=== PATIENT | male | born 1950 | race Caucasian/White ===

== ENCOUNTER 2018-02-02 14:59 | Observation (INO) | payer MEDICARE ==
[2018-02-02] MEDS ORDERED: NS 0.9% 1000 ML* 1,000 ML IV ONE ×2 (16:08→19:20)
[2018-02-02] MEDS ORDERED: Acetaminophen TAB* 325 MG PO ONE (17:19)
--- NOTE | 2018-02-02 17:26 | RAD ---
Indication: Shortness of breath. Comparison is made with previous exam dated January 09, 2014. 2 views the chest including dual energy PA views demonstrates hyperinflated lung figueroa. No alveolar consolidation is noted. No mediastinal shift is noted. There is flattening the diaphragms noted. IMPRESSION: Hyperinflated lung figueroa with chronic granulomas in the right lung base. No definite pneumonia is noted.
[2018-02-02] MEDS ORDERED: Levofloxacin 500 MG IVPREMIX(* 500 MG/100 ML BAG IVPB ONE (18:03)
[2018-02-02 18:52] LABS: Hematocrit 45 % (42-52); Hemoglobin 15.2 g/dl (14.0-18.0); Mean Corpuscular HGB Conc 34 g/dl (31-36); Mean Corpuscular Hemoglobin 31 pg (27-31); Mean Corpuscular Volume 91 fL (80-94); Mean Platelet Volume 11 um3 (7.4-10.4); Platelet Count 251 10^3/ul (150-450); Red Blood Count 4.96 10^6/ul (4.0-5.4); Red Cell Distribution Width 15 % (10.5-15); White Blood Count 44.7 10^3/ul (3.5-10.8)
[2018-02-02 19:07] LABS: EGFR Non-African American 80.3 (>60)
[2018-02-02 19:17] LABS: Monocytes % 3 % (0-7)
[2018-02-02] MEDS ORDERED: Vancomycin(*) 1,000 MG in NS 0.9% 250 ML* 250 ML IVPB ONE (19:20)
[2018-02-02 19:34] LABS: Hematocrit 42 % (42-52); Hemoglobin 14.4 g/dl (14.0-18.0); Mean Corpuscular HGB Conc 34 g/dl (31-36); Mean Corpuscular Hemoglobin 31 pg (27-31); Mean Corpuscular Volume 91 fL (80-94); Mean Platelet Volume 10 um3 (7.4-10.4); Platelet Count 222 10^3/ul (150-450); Red Blood Count 4.67 10^6/ul (4.0-5.4); Red Cell Distribution Width 15 % (10.5-15); White Blood Count 42.1 10^3/ul (3.5-10.8)
[2018-02-02 19:44] LABS: INR 1.15 (0.77-1.02)
[2018-02-02 19:53] LABS: EGFR Non-African American 78.4 (>60)
[2018-02-02] MEDS ORDERED: Enoxaparin(*) 80 MG/0.8 ML SYR SUBCUT ONE (20:08)
[2018-02-02] MEDS ORDERED: Aspirin Low Dose CHEW TAB* 81 MG PO ONE (20:08)
[2018-02-02] MEDS ORDERED: Clopidogrel TAB* 300 MG PO ONE (20:08)
[2018-02-02] MEDS ORDERED: Iohexol 350* (CONTRAST) 500 ML MDV IV ONE (21:44)
--- NOTE | 2018-02-02 22:06 | RAD ---
Indication: Pulmonary embolus. Contrast: Administered 67.2 ml of OMNIPAQUE 350 mg/ml CTA of the chest was performed after IV contrast administration. Coronal and sagittal reconstructed images were obtained. The pulmonary arterial tree is well opacified. There is no evidence of filling defects to suggest pulmonary embolus. Aorta demonstrates no evidence of aortic dissection. No aneurysmal dilatation is noted. There is moderate degree of mediastinal adenopathy. Pretracheal lymph nodes measure up to 9 mm. Right hilar lymph nodes are noted measuring up to 2.9 cm. Left hilar lymph nodes are noted measuring up to 13 mm. The heart demonstrates no pericardial effusion. The trachea and major bronchi appear patent. Emphysematous changes are noted. Atelectasis is noted in the left lower lobe posteriorly. There is a calcified granuloma in the right lung base measuring 4 mm and 2 mm. There is right middle lobe atelectasis noted. The patient status post splenectomy. Left renal cysts are noted. The liver is otherwise unremarkable. IMPRESSION: No pulmonary embolus is noted. Emphysematous changes of the lung figueroa are noted. Calcified granuloma in the right lung base. Atelectasis in the right middle lobe and scarring in the left base. Mild to moderate mediastinal and hilar adenopathy is noted as described above.
--- NOTE | 2018-02-03 00:07 | ED ---
Chela Madison Abhishek, scribed for Billy Harper MD on 02/02/18 at 2349 . Progress - Progress Note Progress Note: The pt was signed out by Dr. Zhang awaiting disposition and blood work. - Consult/PCP Time Called: 23:30 Consult/PCP: Dr. Selene Bright Course/Dx - Course Course Of Treatment: The pt's dx will be fever, colon cancer, and elevated troponin. The pt will be admitted to the [facility]. We discussed pt care with Dr. Bright and she accepts pt care. - Diagnoses Provider Diagnoses: Fever, Colon cancer, Elevated troponin - Provider Notifications Instructed by Provider To: Admit As Observation The documentation as recorded by the Chela eric Abhishek accurately reflects the service I personally performed and the decisions made by , Billy Harper MD.
[2018-02-03] MEDS ORDERED: HYDROcodone/ACETAMIN 5-325 MG* 1 TAB PO PRN (00:54)
[2018-02-03] MEDS ORDERED: LORazepam TAB(*) 0.5 MG PO PRN (00:54)
[2018-02-03] MEDS ORDERED: Prochlorperazine TAB* 10 MG PO PRN (00:54)
[2018-02-03] MEDS ORDERED: Ondansetron TAB* 4 MG PO PRN (00:54)
[2018-02-03] MEDS ORDERED: Loperamide CAP* 2 MG PO PRN (01:04)
[2018-02-03 02:15] LABS: Urine Appearance Clear; Urine Blood 1+ (Negative); Urine Color Yellow; Urine Ketones Negative (Negative); Urine Protein Negative (Negative); Urine Specific Gravity 1.039 (1.010-1.030); Urine Urobilinogen Negative (Negative)
--- NOTE | 2018-02-03 07:39 | HP ---
CC: Dr. Wyman; Dr. Andrea Au * HISTORY AND PHYSICAL: DATE OF ADMISSION: 02/03/18 PRIMARY CARE PROVIDER: Dr. Wyman. ONCOLOGIST: Dr. Andrea Au CHIEF COMPLAINT: Fever. HISTORY OF PRESENT ILLNESS: Mr. Barron is a 67-year-old male who was diagnosed with colon cancer in October 2017 and is now status post his third round of chemotherapy last week who presents to the emergency room with complaints of fever. The patient states that yesterday morning he felt like he was getting dehydrated and therefore went to the store and bought some Gatorade. He began to drink this and by yesterday afternoon he developed a fever. He contacted his oncologist's office and was told to present to the emergency room for evaluation. The patient presented to the ER with complaints of fever and was found to have a temperature of initially 100.4, though it did go up to 101.2. The patient's oncologist was contacted and it was recommended that he be sent out on Levaquin 500 mg daily to complete a 10-day course of therapy. The patient, however, had lab work performed including a troponin that was noted to be elevated at 0.76. This got rerun, and the troponin was, in fact, only 0.14. Followup troponin 3 hours later is 0.1. The patient denies any chest pain or palpitations. He does state that yesterday he began to have shortness of breath with exertion. He does have a slight cough, though nothing significant. He denies any dysuria. He denies any skin break-down. He denies any sputum production. He does state that he began to have diarrhea after presenting to the emergency room. He has gone 3 times. It has been pure liquid stool. He has developed diarrhea like this following each course of chemotherapy so far. The patient had been using Imodium as an outpatient with good response last week. PAST MEDICAL HISTORY: 1. Colon cancer. 2. BPH. 3. Chronic back pain. PAST SURGICAL HISTORY: 1. L4/L5/S1 laminectomy. 2. Splenectomy. 3. Partial colon resection. 4. Bilateral cataract extraction. MEDICATIONS: 1. Proscar 5 mg p.o. daily. 2. Flomax 0.4 mg p.o. daily. 3. Aspirin 81 mg p.o. daily. 4. [place] 5/325 one tab p.o. q.6 hours p.r.n. pain. 5. Zofran 8 mg p.o. q.8 hours p.r.n. nausea. 6. Compazine 10 mg p.o. q.6 hours p.r.n. nausea. 7. Ativan 0.5 mg p.o. t.i.d. p.r.n. nausea. ALLERGIES: No known drug allergies. FAMILY HISTORY: Mom at age 87 from complications from dementia. Dad ; his medical history is unknown. SOCIAL HISTORY: The patient smokes 1 pack per day. He drinks alcohol on occasion. He denies any recreational drugs, though does state that he used marijuana for nausea. I believe this was medical marijuana. He previously was working as a srinivasan. His , Chantelle, is his health care proxy. He has 1 child. REVIEW OF SYSTEMS: A complete 11 system review of systems is obtained. Pertinent positives and negatives are as per HPI and otherwise negative. PHYSICAL EXAMINATION GENERAL: The patient is a well-developed, middle-aged male lying on his left side in the stretcher in no acute distress. VITAL SIGNS: Blood pressure 133/60, pulse 69, respirations 25, temp 98.6 most recently, T-max of 101.2, and O2 sat 97% on room air. HEENT: Pupils are equal and round. Extraocular muscles intact. Oropharynx is clear. Oral mucosa is moist. The patient wears upper and lower dentures. There is no submandibular, cervical, or supraclavicular adenopathy. Thyroid is not enlarged. No thyroid nodules are noted. PULMONARY: Lungs are clear to auscultation bilaterally. CARDIAC: Normal S1 and S2. Regular, rate, and rhythm. I do not appreciate any murmurs. There is no lower extremity edema. ABDOMEN: Bowel sounds present. Abdomen is soft, nontender, and nondistended. MUSCULOSKELETAL: There is no cyanosis or clubbing in the digits. There is full active range of motion of all 4 extremities. SKIN: Warm and dry. There are no rashes. NEUROLOGIC: Cranial nerves II through XII are grossly intact. Sensation is intact to light touch throughout. Strength is 5/5 and symmetric in both upper and lower extremities bilaterally. PSYCH: The patient is alert. He is oriented x3. Affect appears appropriate. LABORATORY DATA: WBC 42.1, hemoglobin 14.4, hematocrit 42, platelets 222, INR 1.15. Sodium 132, potassium 3.5, chloride 102, CO2 of 24, BUN 12, creatinine 0.96, glucose 138, lactic acid 1.4, calcium 8.7, bilirubin 0.4, AST 34, ALT 17, alk phos 304, troponin 0.10. CRP 18.31, BNP 375, albumin 3.5. Influenza A and B negative. EKG revealed normal sinus rhythm without any acute ST or T-wave abnormalities. Chest x-ray revealed hyperinflated lung figueroa with chronic granulomas in the right lung base. No definite pneumonia identified. CTA chest - no pulmonary embolism is noted. Emphysematous changes of the lung figueroa are noted. A calcified granuloma at the right lung base is noted. Atelectasis in the right middle lobe and scaring in the left base is also noted. There is mild to moderate mediastinal and hilar adenopathy noted as well. ASSESSMENT AND PLAN: Mr. Barron is a 67-year-old male with a relatively recent diagnosis of colon cancer who is now status post his third round of chemotherapy finishing early last week, who also received Neupogen at the completion of this, who presents to the emergency room with complaints of fever and is found to have an elevated troponin. 1. Fever. Dr. Zhang in the emergency room spoke with the patient's primary oncologist. The decision was made to start the patient on Levaquin 500 mg p.o. daily to complete a 10-day course of therapy. No clear infectious source has been identified. I will continue the Levaquin as recommended by Dr. Au. 2. Elevated troponin. In the ER, there were numerous issues with the patient' s blood work. An initial troponin was reported to be 0.76. When this was rerun , in fact, it was only 0.14. Because of the elevated troponin, he was treated for possible N-STEMI with aspirin and Plavix 300 mg and Lovenox 70 mg subcutaneous x1. The patient's troponin, however, is not as elevated as it was initially thought. His troponin has, however, trended down slightly to 0.10 on repeat draw. The patient will have one more troponin drawn. A chemical nuclear stress test will be ordered. It is unclear if the patient may have developed some demand ischemia related to his fever. He denies any chest pain at this point. I will also go ahead and get an echocardiogram to evaluate the elevated troponin. If the stress test is negative, he can likely go home. 3. BPH. Will continue Flomax and Proscar. 4. Chronic back pain. Continue p.r.n. [place]. 5. Colon cancer status post chemotherapy. The patient will continue with his p.r.n. antiemetics. We will monitor his stooling. I will order Imodium after we get a stool culture. 6. DVT prophylaxis. According to the Adult Thrombosis Prophylaxis Risk Factor Assessment Guide, the patient has a total risk factor score of 5 making him the highest risk. He did receive a dose of Lovenox in the emergency room. He will be switched to prophylaxis dosing. 7. Code status is full. TIME SPENT: 65 minutes were spent admitting this patient. [id number]/CPS #: [id number]
[2018-02-03] MEDS ORDERED: Tamsulosin CAP* 0.4 MG PO SCH (09:00)
[2018-02-03] MEDS ORDERED: Finasteride TAB* 5 MG PO SCH (09:00)
[2018-02-03] MEDS ORDERED: Aspirin EC Low Dose* 81 MG TAB.EC PO SCH (09:00)
[2018-02-03] MEDS ORDERED: Perflutren Lipid Microsphere* 3 ML VIAL ONE (10:50)
--- NOTE | 2018-02-03 11:54 | ED ---
Patricia Madison Thomas, scribed for Onesimo Zhang MD on 02/02/18 at 1545 . HPI Febrile Illness - HPI Summary HPI Summary: The patient is a 67 year old male complaining of generalized weakness, fatigue, shortness of breath, fever, and dry mouth. He has a history of colon cancer and his last chemotherapy was eight days ago. He denies cough, nausea, and vomiting. He did have diarrhea 6-7 days ago, but this resolved. - History of Current Complaint Chief Complaint: EDShortnessOfBreath Time Seen by Provider: 02/02/18 15:27 Hx Obtained From: Patient Onset/Duration: Still Present Timing: Constant Current Severity: Mild Pain Intensity: 0 Pain Scale Used: 0-10 Numeric Associated Signs and Symptoms: Other: - weakness, fatigue, SOB, fever, dry mouth ; NEGATIVE: cough, nausea, vomiting - Allergy/Home Medications Allergies/Adverse Reactions: Allergies Allergy/AdvReac Type Severity Reaction Status Date / Time No Known Allergies Allergy Verified 11/05/17 16:08 PMH/Surg Hx/FS Hx/Imm Hx Endocrine/Hematology History: Denies: Hx Diabetes Cardiovascular History: Denies: Hx Hypertension, Hx Pacemaker/ICD History: Denies: Hx Renal Disease Musculoskeletal History: Denies: Hx Rheumatoid Arthritis, Hx Osteoporosis Sensory History: Denies: Hx Hearing Aid Psychiatric History: Denies: Hx Panic Disorder - Surgical History Surgery Procedure, Year, and Place: LAMINECTOMY -1977. SPLENECTOMY - 1969 Infectious Disease History: No Infectious Disease History: Denies: Traveled Outside the [place] in Last 30 Days - Family History Known Family History: Positive: Other - Patient denies relevant FHx - Social History Alcohol Use: None Hx Substance Use: No Hx Tobacco Use: Yes Smoking Status (MU): Current Every Day Smoker Review of Systems Positive: Fever, Other - Generalized weakness Positive: Other - Dry mouth Positive: Shortness Of Breath. Negative: Cough Negative: Vomiting, Nausea All Other Systems Reviewed And Are Negative: Yes Physical Exam - Summary Physical Exam Summary: VITAL SIGNS: Reviewed. GENERAL: Patient is a well-developed and nourished male who is lying comfortable in the stretcher. Patient is not in any acute respiratory distress. HEAD AND FACE: No signs of trauma. No ecchymosis, hematomas or skull depressions. No sinus tenderness. EYES: PERRLA, EOMI x 2, No injected conjunctiva, no nystagmus. EARS: Hearing grossly intact. Ear canals and tympanic membranes are within normal limits. MOUTH: Oropharynx within normal limits. NECK: Supple, trachea is midline, no adenopathy, no JVD, no carotid bruit, no c- spine tenderness, neck with full ROM. CHEST: Symmetric, no tenderness at palpation LUNGS: Clear to auscultation bilaterally. No wheezing or crackles. CVS: Regular rate and rhythm, S1 and S2 present, no murmurs or gallops appreciated. ABDOMEN: Soft, non-tender. No signs of distention. No rebound no guarding, and no masses palpated. Bowel sounds are normal. EXTREMITIES: FROM in all major joints, no edema, no cyanosis or clubbing. NEURO: Alert and oriented x 3. No acute neurological deficits. Speech is normal and follows commands. SKIN: Dry and warm Triage Information Reviewed: Yes Vital Signs On Initial Exam: Initial Vitals Temp Pulse Resp BP Pulse Ox 100.4 F 89 24 132/64 100 02/02/18 15:01 02/02/18 15:01 02/02/18 15:01 02/02/18 15:01 02/02/18 15:01 Vital Signs Reviewed: Yes Diagnostics - Vital Signs Vital Signs Temp Pulse Resp BP Pulse Ox 02/02/18 15:01 100.4 F 89 24 132/64 100 - Laboratory Lab Results: Lab Results 02/02/18 02/02/18 02/02/18 Range/Units 01:55 16:24 16:24 WBC RBC Hgb Hct MCV MCH MCHC RDW Plt Count MPV Neut % (Auto) Lymph % (Auto) [place] % (Auto) Eos % (Auto) Baso % (Auto) Absolute Neuts (auto) Absolute Lymphs (auto) Absolute Monos (auto) Absolute Eos (auto) Absolute Basos (auto) Absolute Nucleated RBC Immature Gran % (0-9) % Neutrophils % (38-83) % Band Neutrophils % (0-8) % Lymphocytes % (25-47) % Reactive Lymphs % (0-6) % Monocytes % (0-7) % Eosinophils % (0-6) % Basophils % (0-2) % Metamyelocytes % (0-2) % Nucleated RBC % Abs Neuts (Manual) (1.5-7.7) 10^3/ul Abs Monocytes (Manual) (0-0.8) 10^3/ul Absolute Eos (Manual) (0-0.6) 10^3/ul Abs Basophils (Manual) (0-0.2) 10^3/ul Hypogranular Platelets Clumped Platelets Large Platelets Giant Platelets Normal RBC Morphology (Normal) Hem Pathologist Commnt INR (Anticoag Therapy) (0.77-1.02) APTT Cancelled Sodium Potassium Chloride Carbon Dioxide Anion Gap BUN Creatinine Est GFR ( Amer) Est GFR (Non-Af Amer) BUN/Creatinine Ratio Glucose Lactic Acid (0.5-2.0) mmol/L Calcium Total Bilirubin AST ALT Alkaline Phosphatase Total Creatine Kinase CK-MB (CK-2) Troponin I C-Reactive Protein B-Natriuretic Peptide Cancelled Total Protein Albumin Globulin Albumin/Globulin Ratio Urine Color Yellow Urine Appearance Clear Urine pH 5.0 (5-9) Ur Specific Cut Off 1.039 H (1.010-1.030) Urine Protein Negative (Negative) Urine Ketones Negative (Negative) Urine Blood 1+ A (Negative) Urine Nitrate Negative (Negative) Urine Bilirubin Negative (Negative) Urine Urobilinogen Negative (Negative) Ur Leukocyte Esterase Negative (Negative) Urine WBC (Auto) Trace(0-5/hpf) (Absent) Urine RBC (Auto) 1+(3-5/hpf) A (Absent) Ur Squamous Epith Cells Present A (Absent) Urine Bacteria Absent (Absent) Urine Glucose Negative (Negative) Influenza A (Rapid) (Negative) Influenza B (Rapid) (Negative) 02/02/18 02/02/18 02/02/18 Range/Units 16:24 16:24 16:32 WBC Cancelled RBC Cancelled Hgb Cancelled Hct Cancelled MCV Cancelled MCH Cancelled MCHC Cancelled RDW Cancelled Plt Count Cancelled MPV Cancelled Neut % (Auto) Cancelled Lymph % (Auto) Cancelled [place] % (Auto) Cancelled Eos % (Auto) Cancelled Baso % (Auto) Cancelled Absolute Neuts (auto) Cancelled Absolute Lymphs (auto) Cancelled Absolute Monos (auto) Cancelled Absolute Eos (auto) Cancelled Absolute Basos (auto) Cancelled Absolute Nucleated RBC Cancelled Immature Gran % (0-9) % Neutrophils % (38-83) % Band Neutrophils % (0-8) % Lymphocytes % (25-47) % Reactive Lymphs % (0-6) % Monocytes % (0-7) % Eosinophils % (0-6) % Basophils % (0-2) % Metamyelocytes % (0-2) % Nucleated RBC % Cancelled Abs Neuts (Manual) (1.5-7.7) 10^3/ul Abs Monocytes (Manual) (0-0.8) 10^3/ul Absolute Eos (Manual) (0-0.6) 10^3/ul Abs Basophils (Manual) (0-0.2) 10^3/ul Hypogranular Platelets Cancelled Clumped Platelets Cancelled Large Platelets Cancelled Giant Platelets Cancelled Normal RBC Morphology (Normal) Hem Pathologist Commnt INR (Anticoag Therapy) (0.77-1.02) APTT Sodium Cancelled Potassium Cancelled Chloride Cancelled Carbon Dioxide Cancelled Anion Gap Cancelled BUN Cancelled Creatinine Cancelled Est GFR ( Amer) Cancelled Est GFR (Non-Af Amer) Cancelled BUN/Creatinine Ratio Cancelled Glucose Cancelled Lactic Acid 1.3 (0.5-2.0) mmol/L Calcium Cancelled Total Bilirubin Cancelled AST Cancelled ALT Cancelled Alkaline Phosphatase Cancelled Total Creatine Kinase Cancelled CK-MB (CK-2) Cancelled Troponin I Cancelled C-Reactive Protein Cancelled B-Natriuretic Peptide Total Protein Cancelled Albumin Cancelled Globulin Cancelled Albumin/Globulin Ratio Cancelled Urine Color Urine Appearance Urine pH (5-9) Ur Specific Cut Off (1.010-1.030) Urine Protein (Negative) Urine Ketones (Negative) Urine Blood (Negative) Urine Nitrate (Negative) Urine Bilirubin (Negative) Urine Urobilinogen (Negative) Ur Leukocyte Esterase (Negative) Urine WBC (Auto) (Absent) Urine RBC (Auto) (Absent) Ur Squamous Epith Cells (Absent) Urine Bacteria (Absent) Urine Glucose (Negative) Influenza A (Rapid) (Negative) Influenza B (Rapid) (Negative) 02/02/18 02/02/18 02/02/18 Range/Units 16:32 16:32 16:32 WBC RBC Hgb Hct MCV MCH MCHC RDW Plt Count MPV Neut % (Auto) Lymph % (Auto) [place] % (Auto) Eos % (Auto) Baso % (Auto) Absolute Neuts (auto) Absolute Lymphs (auto) Absolute Monos (auto) Absolute Eos (auto) Absolute Basos (auto) Absolute Nucleated RBC Immature Gran % (0-9) % Neutrophils % (38-83) % Band Neutrophils % (0-8) % Lymphocytes % (25-47) % Reactive Lymphs % (0-6) % Monocytes % (0-7) % Eosinophils % (0-6) % Basophils % (0-2) % Metamyelocytes % (0-2) % Nucleated RBC % Abs Neuts (Manual) (1.5-7.7) 10^3/ul Abs Monocytes (Manual) (0-0.8) 10^3/ul Absolute Eos (Manual) (0-0.6) 10^3/ul Abs Basophils (Manual) (0-0.2) 10^3/ul Hypogranular Platelets Clumped Platelets Large Platelets Giant Platelets Normal RBC Morphology (Normal) Hem Pathologist Commnt INR (Anticoag Therapy) (0.77-1.02) APTT 40.4 H Sodium 131 L Potassium 4.1 Chloride 99 L Carbon Dioxide 24 Anion Gap 8 BUN 12 Creatinine 0.94 Est GFR ( Amer) 103.3 Est GFR (Non-Af Amer) 80.3 BUN/Creatinine Ratio 12.8 Glucose 98 Lactic Acid (0.5-2.0) mmol/L Calcium 9.4 Total Bilirubin 0.40 AST 35 ALT 18 Alkaline Phosphatase 337 H Total Creatine Kinase 25 CK-MB (CK-2) 7.8 H Troponin I 0.14 H* C-Reactive Protein 19.85 H B-Natriuretic Peptide 363 H Total Protein 7.0 Albumin 3.9 Globulin 3.1 Albumin/Globulin Ratio 1.3 Urine Color Urine Appearance Urine pH (5-9) Ur Specific Cut Off (1.010-1.030) Urine Protein (Negative) Urine Ketones (Negative) Urine Blood (Negative) Urine Nitrate (Negative) Urine Bilirubin (Negative) Urine Urobilinogen (Negative) Ur Leukocyte Esterase (Negative) Urine WBC (Auto) (Absent) Urine RBC (Auto) (Absent) Ur Squamous Epith Cells (Absent) Urine Bacteria (Absent) Urine Glucose (Negative) Influenza A (Rapid) (Negative) Influenza B (Rapid) (Negative) 02/02/18 02/02/18 02/02/18 Range/Units 16:32 16:38 19:25 WBC 44.7 H RBC 4.96 Hgb 15.2 Hct 45 MCV 91 MCH 31 MCHC 34 RDW 15 Plt Count 251 MPV 11 H Neut % (Auto) Not Reportable Lymph % (Auto) Not Reportable [place] % (Auto) Not Reportable Eos % (Auto) Not Reportable Baso % (Auto) Not Reportable Absolute Neuts (auto) Not Reportable Absolute Lymphs (auto) Not Reportable Absolute Monos (auto) Not Reportable Absolute Eos (auto) Not Reportable Absolute Basos (auto) Not Reportable Absolute Nucleated RBC Not Reportable Immature Gran % 19 H (0-9) % Neutrophils % 75 (38-83) % Band Neutrophils % 16 H (0-8) % Lymphocytes % 2 L (25-47) % Reactive Lymphs % 1 (0-6) % Monocytes % 3 (0-7) % Eosinophils % 0 (0-6) % Basophils % 0 (0-2) % Metamyelocytes % 3 H (0-2) % Nucleated RBC % Not Reportable Abs Neuts (Manual) 33.2 H (1.5-7.7) 10^3/ul Abs Monocytes (Manual) 1.3 H (0-0.8) 10^3/ul Absolute Eos (Manual) 0 (0-0.6) 10^3/ul Abs Basophils (Manual) 0 (0-0.2) 10^3/ul Hypogranular Platelets Clumped Platelets Large Platelets Giant Platelets Normal RBC Morphology Normal (Normal) Hem Pathologist Commnt Pending INR (Anticoag Therapy) 1.15 H (0.77-1.02) APTT 37.6 H Sodium Potassium Chloride Carbon Dioxide Anion Gap BUN Creatinine Est GFR ( Amer) Est GFR (Non-Af Amer) BUN/Creatinine Ratio Glucose Lactic Acid (0.5-2.0) mmol/L Calcium Total Bilirubin AST ALT Alkaline Phosphatase Total Creatine Kinase CK-MB (CK-2) Troponin I C-Reactive Protein B-Natriuretic Peptide Total Protein Albumin Globulin Albumin/Globulin Ratio Urine Color Urine Appearance Urine pH (5-9) Ur Specific Cut Off (1.010-1.030) Urine Protein (Negative) Urine Ketones (Negative) Urine Blood (Negative) Urine Nitrate (Negative) Urine Bilirubin (Negative) Urine Urobilinogen (Negative) Ur Leukocyte Esterase (Negative) Urine WBC (Auto) (Absent) Urine RBC (Auto) (Absent) Ur Squamous Epith Cells (Absent) Urine Bacteria (Absent) Urine Glucose (Negative) Influenza A (Rapid) Negative (Negative) Influenza B (Rapid) Negative (Negative) 02/02/18 02/02/18 02/02/18 Range/Units 19:25 19:25 19:25 WBC 42.1 H RBC 4.67 Hgb 14.4 Hct 42 MCV 91 MCH 31 MCHC 34 RDW 15 Plt Count 222 MPV 10 Neut % (Auto) Not Reportable Lymph % (Auto) Not Reportable [place] % (Auto) Not Reportable Eos % (Auto) Not Reportable Baso % (Auto) Not Reportable Absolute Neuts (auto) Not Reportable Absolute Lymphs (auto) Not Reportable Absolute Monos (auto) Not Reportable Absolute Eos (auto) Not Reportable Absolute Basos (auto) Not Reportable Absolute Nucleated RBC Not Reportable Immature Gran % (0-9) % Neutrophils % (38-83) % Band Neutrophils % (0-8) % Lymphocytes % (25-47) % Reactive Lymphs % (0-6) % Monocytes % (0-7) % Eosinophils % (0-6) % Basophils % (0-2) % Metamyelocytes % (0-2) % Nucleated RBC % Not Reportable Abs Neuts (Manual) (1.5-7.7) 10^3/ul Abs Monocytes (Manual) (0-0.8) 10^3/ul Absolute Eos (Manual) (0-0.6) 10^3/ul Abs Basophils (Manual) (0-0.2) 10^3/ul Hypogranular Platelets Clumped Platelets Large Platelets Giant Platelets Normal RBC Morphology (Normal) Hem Pathologist Commnt INR (Anticoag Therapy) (0.77-1.02) APTT Sodium 132 L Potassium 3.5 Chloride 102 Carbon Dioxide 24 Anion Gap 6 BUN 12 Creatinine 0.96 Est GFR ( Amer) 100.8 Est GFR (Non-Af Amer) 78.4 BUN/Creatinine Ratio 12.5 Glucose 138 H Lactic Acid 1.4 (0.5-2.0) mmol/L Calcium 8.7 Total Bilirubin 0.40 AST 34 ALT 17 Alkaline Phosphatase 304 H Total Creatine Kinase CK-MB (CK-2) Troponin I 0.10 H* C-Reactive Protein 18.31 H B-Natriuretic Peptide Total Protein 6.2 L Albumin 3.5 Globulin 2.7 Albumin/Globulin Ratio 1.3 Urine Color Urine Appearance Urine pH (5-9) Ur Specific Cut Off (1.010-1.030) Urine Protein (Negative) Urine Ketones (Negative) Urine Blood (Negative) Urine Nitrate (Negative) Urine Bilirubin (Negative) Urine Urobilinogen (Negative) Ur Leukocyte Esterase (Negative) Urine WBC (Auto) (Absent) Urine RBC (Auto) (Absent) Ur Squamous Epith Cells (Absent) Urine Bacteria (Absent) Urine Glucose (Negative) Influenza A (Rapid) (Negative) Influenza B (Rapid) (Negative) 02/02/18 Range/Units 19:25 WBC RBC Hgb Hct MCV MCH MCHC RDW Plt Count MPV Neut % (Auto) Lymph % (Auto) [place] % (Auto) Eos % (Auto) Baso % (Auto) Absolute Neuts (auto) Absolute Lymphs (auto) Absolute Monos (auto) Absolute Eos (auto) Absolute Basos (auto) Absolute Nucleated RBC Immature Gran % (0-9) % Neutrophils % (38-83) % Band Neutrophils % (0-8) % Lymphocytes % (25-47) % Reactive Lymphs % (0-6) % Monocytes % (0-7) % Eosinophils % (0-6) % Basophils % (0-2) % Metamyelocytes % (0-2) % Nucleated RBC % Abs Neuts (Manual) (1.5-7.7) 10^3/ul Abs Monocytes (Manual) (0-0.8) 10^3/ul Absolute Eos (Manual) (0-0.6) 10^3/ul Abs Basophils (Manual) (0-0.2) 10^3/ul Hypogranular Platelets Clumped Platelets Large Platelets Giant Platelets Normal RBC Morphology (Normal) Hem Pathologist Commnt INR (Anticoag Therapy) (0.77-1.02) APTT Sodium Potassium Chloride Carbon Dioxide Anion Gap BUN Creatinine Est GFR ( Amer) Est GFR (Non-Af Amer) BUN/Creatinine Ratio Glucose Lactic Acid (0.5-2.0) mmol/L Calcium Total Bilirubin AST ALT Alkaline Phosphatase Total Creatine Kinase CK-MB (CK-2) Troponin I C-Reactive Protein B-Natriuretic Peptide 375 H Total Protein Albumin Globulin Albumin/Globulin Ratio Urine Color Urine Appearance Urine pH (5-9) Ur Specific Cut Off (1.010-1.030) Urine Protein (Negative) Urine Ketones (Negative) Urine Blood (Negative) Urine Nitrate (Negative) Urine Bilirubin (Negative) Urine Urobilinogen (Negative) Ur Leukocyte Esterase (Negative) Urine WBC (Auto) (Absent) Urine RBC (Auto) (Absent) Ur Squamous Epith Cells (Absent) Urine Bacteria (Absent) Urine Glucose (Negative) Influenza A (Rapid) (Negative) Influenza B (Rapid) (Negative) Result Diagrams: 02/02/18 19:25 02/02/18 19:25 Lab Statement: Any lab studies that have been ordered have been reviewed, and results considered in the medical decision making process. - Radiology CXR Xray Interpretation: No Acute Changes - Hyperinflated lung figueroa with chronic granulomas in the right lung base. No definite pneumonia is noted. Dr. Zhang has reviewed this report. Radiology Interpretation Completed By: Radiologist - EKG 16:37 Cardiac Rate: NL EKG Rhythm: Sinus Rhythm - at 71 BPM EKG Interpretation: No ST elevations. ST depressions in V4-V6. Course/Dx - Course Assessment/Plan: The patient is a 67 year old male complaining of generalized weakness, fatigue, shortness of breath, fever, and dry mouth. He has a history of colon cancer and his last chemotherapy was eight days ago. He denies cough, nausea, and vomiting. He did have diarrhea 6-7 days ago, but this resolved. Test results are without significant abnormality. WBC is 6.9 and CRP is less than 1. CXR shows Hyperinflated lung figueroa with chronic granulomas in the right lung base. No definite pneumonia is noted. Influenza A and B are negative. At this point, I discussed the case with Dr. Au, oncology, who recommends the patient be given Levaquin and be discharged home with Levaquin. The patient can take ibuprofen and Tylenol for fevers. Right after I started Levaquin I was instructed by patient's nurse that patient's blood work was erroneous and the results are not accurrate. Thus Blood work was dramador again and now patient is awaiting for blood test results. Patient will be signed out to Dr. Harper and further assestment. Patient id hemodynamically stable and A+O x 3. - Diagnoses Provider Diagnoses: Fever, Colon cancer, Elevated troponin - Provider Notifications Discussed Care Of Patient With: Andrea Au MD Time Discussed With Above Provider: 18:11 Instructed by Provider To: Other - Dr. Au, the patient's oncologist, recommends giving the patient one dose of Levaquin in the emergency deparmtent and then discharging with a Levaquin prescription for outpatient follow up. Discharge - Discharge Plan Condition: Stable Disposition: HOME Discharge Disposition Comment: Sined out to Dr. Harper. The documentation as recorded by the Patricia eric Thomas accurately reflects the service I personally performed and the decisions made by me, Onesimo Zhang MD.
[2018-02-03] MEDS ORDERED: Regadenoson* 0.4 MG/5 ML SYRINGE ONE (12:40)
--- NOTE | 2018-02-03 12:51 | ECHO ---
Patient: DEBBIE CORTES [facility] Rec#: [id number] : 1950 Date: 02/03/2018 Age: 67y Height: 180.34 cm / 71.0 in Weight: 74.84 kg / 164.9 lbs Sex: M BSA: 1.94 Room#: 448 Admit Date#: 02/03/2018 Type: Inpatient Referring: Selene Bright DO Reading: Arlene Turner MD Front Tender: Andreia Hatch RDCS CC: Derek Wyman MD Transthoracic Echocardiogram Indication: ACS BP: 127/53 HR: 71 Rhythm: NSR Findings History: Colon cancer with chemo rx,fever,BPH,evelvated Troponins. Technical Comments: The study is technically difficult. Definity used to enhance images. Completed at 1128. Left Ventricle: The left ventricular chamber size is mildly dilated. Global left ventricular wall motion and contractility are within normal limits.Base of the inferior wall relatively hypokinetic. There is normal left ventricular systolic function. The estimated ejection fraction is 55-60%. Abnormal left ventricular diastolic function is observed. Left Atrium: The left atrium is mildly dilated. Right Ventricle: The right ventricle is mildly dilated. The right ventricular global systolic function is normal. Right Atrium: The right atrium is mildly dilated. Aortic Valve: The aortic valve is trileaflet. The aortic valve leaflets appear mildly sclerotic. There is mild to moderate aortic regurgitation. There is no evidence of aortic stenosis. Mitral Valve: The mitral valve leaflets are mildly thickened. There is a trace of mitral regurgitation. There is no evidence of mitral stenosis. Tricuspid Valve: The tricuspid valve leaflets are normal. There is trace to mild tricuspid regurgitation. The right ventricular systolic pressure is estimated at 38 mmHg. There is evidence of mild pulmonary hypertension. There is no tricuspid stenosis. Pulmonic Valve: The pulmonic valve appears normal. There is no evidence of pulmonic regurgitation. There is no pulmonic stenosis. Pericardium: The pericardium appears normal. Aorta: The ascending aorta is not well visualized. The aortic arch is not well visualized. There is moderate dilatation of the aortic root. Pulmonary Artery: The main pulmonary artery is not well visualized. Venous: The inferior vena cava appears normal in size. There is a greater than 50% respiratory change in the inferior vena cava dimension. Contrast: Definity was used to optimize study. A total of 3.5 ml used. Intravenous contrast was used to enhance endocardial border definition. Conclusions The left ventricular chamber size is mildly dilated. Global left ventricular wall motion and contractility are within normal limits. Base of the inferior wall relatively hypokinetic. The estimated ejection fraction is 55-60%. Mildly abnormal diastolic filling. The right ventricle is mildly dilated and systolic function is normal. The aortic valve leaflets appear mildly sclerotic. There is mild to moderate aortic regurgitation, closer to mild. There is a trace of mitral regurgitation. There is trace to mild tricuspid regurgitation. There is evidence of mild pulmonary hypertension. The right ventricular systolic pressure is estimated at 38 mmHg. Aortic root dilated and ascending aorta and arch not optimally visualized. No prior echo to compare. Measurements Name Value Normal Range RVIDd (AP) 2D 3.4 cm (0.9 - 2.6) RVDdMajor (2D) 4.3 cm (2.2 - 4.4) RAd ISD 4CH 5.4 cm (3.4 - 4.9) RA (A4C)W 5.3 cm (2.9 - 4.6) IVSd (2D) 1 cm (0.6 - 1) LVPWd (2D) 0.8 cm (0.6 - 1) LVIDd (2D) 6.2 cm (3.6 - 5.4) LVIDs (2D) 4.6 cm - LV FS (2D) 25 % (25 - 45) Aortic Annulus 2.7 cm (1.4 - 2.6) Ao root diameter (2D) 4.2 cm (2.1 - 3.5) LA dimension (AP) 2D 4.2 cm (2.3 - 3.8) LAd ISD 4CH 5 cm (2.9 - 5.3) LA ISD 4CH W 4.4 cm (2.5 - 4.5) Name Value Normal Range LA ESV SP 4CH (A/L) 60 ml - LA ESV SP 2CH (A/L) 34 ml - LA ESV BP (A/L) 49 ml - LA ESV BP (A/L) index 25.37 ml/m2 - LA ESV SP 4CH (MOD) 59 ml - LA ESV SP 2CH (MOD) 32 ml - Name Value Normal Range MV E-wave Vmax 0.8 m/sec - MV deceleration time 220 msec - MV A-wave Vmax 0.7 m/sec - MV E:A ratio 1.24 ratio - LV septal e' Vmax 0.08 m/sec - LV lateral e' Vmax 0.09 m/sec - LV E:e' septal ratio 10 ratio - LV E:e' lateral ratio 8.89 ratio - Name Value Normal Range AV Vmax 1.5 m/sec - AV VTI 31 cm - AV peak gradient 8.89 mmHg - AV mean gradient 5.37 mmHg - LVOT Vmax 1.2 m/sec - LVOT VTI 23.4 cm - LVOT peak gradient 5.87 mmHg - LVOT mean gradient 2.7 mmHg - AR PHT 363 msec - AR peak gradient 47.29 mmHg - Name Value Normal Range TR Vmax 3 m/sec - TR peak gradient 35 mmHg - RAP 8 mmHg - RVSP 38 mmHg - IVC diameter 1.6 cm - Name Value Normal Range PV Vmax 1.2 m/sec - PV peak gradient 5.85 mmHg -
--- NOTE | 2018-02-03 14:31 | RAD ---
Edited for charges. INDICATION: Elevated troponin. Shortness of breath. History of tobacco use. COMPARISON: No relevant prior exams available on the [facility] PACS for comparison. TECHNIQUE: 10.100 mCi of Tc-99m Myoview were administered IV. SPECT images of the heart were obtained. Later on the same day. Under the direction of Dr. Bazan, the patient was given an IV injection of a pharmacologic stress agent. Subsequently, the patient was given an IV injection of 25.700 mCi Tc-99m Myoview. SPECT images of the heart were obtained. FINDINGS: No gated study performed due to arrhythmia. TID 0.87 within normal limits. Diaphragmatic attenuation and inferior gut activity limits image quality. Based on review of the attenuation corrected and non corrected images the distribution of radiopharmaceutical within the myocardium on the stress and rest images is within normal limits. No compelling fixed or reversible regions of hypoperfusion evident. IMPRESSION: 1. No compelling evidence for stress-induced ischemia or presence of an infarct. 2. No gated study performed due to arrhythmia. ASSESSMENT: Low risk based on portion low risk based on nuclear portion. Based on imaging criteria from ACC/AHA 2002 Guideline Update for the Management of Patients With Chronic Stable Angina Table 23. Noninvasive Risk Stratification. MTDD
[2018-02-03 15:21] VITALS: BP 120/56
[2018-02-03] MEDS ORDERED: Levofloxacin TAB* 500 MG PO SCH ×2 (15:30→18:00)
[2018-02-03] MEDS ORDERED: Enoxaparin(*) 40 MG/0.4 ML SYR SUBCUT SCH (20:00)
--- NOTE | 2018-02-04 11:20 | DS ---
CC: Dr. Wyman * DISCHARGE SUMMARY: DATE OF ADMISSION: 02/03/18 DATE OF DISCHARGE: 02/03/18 HISTORY OF PRESENT ILLNESS: This 67-year-old man was admitted primarily because of an elevated troponin. He came to the emergency room because of a fever. He has gotten [address] Au. His temperature went up to 101.2. Dr. Au on the phone recommended the patient take 10 days of Levaquin 500 mg daily. The patient, I believe got an IV dose in the emergency room on 02/02/18. His troponin was initially found to be 0.176 , but on repeat of the same shortly after, it was 0.14. The patient was admitted to telemetry unit. He had 3 troponin measurements; these were 0.14, 0.10, and 0.12. He had no chest pain. He felt quite well on the day of discharge. He underwent a nuclear stress test as well as an echocardiogram. The stress test showed no evidence of stress-induced ischemia or infarction. The echocardiogram showed an ejection fraction of 55% to 60% and was otherwise unremarkable. The base of the inferior wall was said to be relatively hypokinetic. The patient was given a dose of levofloxacin 500 mg p.o. before discharge. He should take 8 more doses at home. Actually 9 doses were phoned in from the emergency room. FINAL DIAGNOSES: 1. Colon cancer. 2. Elevated troponin of uncertain significance. 3. Chronic back pain. 4. Prostatism. DISCHARGE MEDICATIONS: 1. Levofloxacin 500 mg daily for 8 more days. 2. Hydrocodone/acetaminophen 5/325, 1 every 6 hours p.r.n. 3. Tamsulosin 0.4 mg daily. 4. Finasteride 5 mg daily. 5. Aspirin 81 mg daily. 6. Ondansetron 8 mg every 8 hours p.r.n. 7. Lorazepam 0.5 mg t.i.d. p.r.n. 8. Prochlorperazine 10 mg every 6 hours p.r.n. [id number]/[facility] #: [id number] [facility]
== END 2018-02-03 16:35 | disposition home or self-care (01) ==
LOC: ED 14:59 → MEDTELE 02-03 00:28
PROVIDERS: ADMIT Hospitalist; ATTEND Internal Medicine
DX: R79.89 Other specified abnormal findings of blood chemistry (principal); C18.9 Malignant neoplasm of colon, unspecified; R50.9 Fever, unspecified; M54.9 Dorsalgia, unspecified; N40.0 Benign prostatic hyperplasia without lower urinary tract symptoms; Z92.21 Personal history of antineoplastic chemotherapy; R53.83 Other fatigue; F17.210 Nicotine dependence, cigarettes, uncomplicated
CPT/HCPCS: 36415; 71046; 71275; 78452; 80053; 81003; 81015; 82550; 82553; 83605; 83880; 84484; 85025; 85060; 85610; 85730; 86140; 87040; 87086; 87205; 87502; 93005; 93017; 93306; 96365; 99285; A9270-GY; A9502; C8929; G0378; J1650; J1956; J2785; J3370; Q9967